=== PATIENT | male | born 1955 | race Native Hawaiian/Other Pacific Islander ===

== ENCOUNTER 2018-08-23 06:03 | Day surgery (SDC) | payer BC ==
[2018-08-17 10:10] VITALS: BMI 26.6
[2018-08-23] MEDS ORDERED: ceFAZolin IV 1 gm in Dextrose 1 GM/50 ML BAG IVPB ONE ×2 (07:19→07:59)
[2018-08-23] MEDS ORDERED: Bupivacaine 0.25% 20 ML INJ IJ ONE (07:19)
[2018-08-23] MEDS ORDERED: Lidocaine/Epinephrine 1% 1:100000 10 ML IJ ONE (07:19)
[2018-08-23] MEDS ORDERED: Propofol 10 mg/ml Inj (20 ML) ONE (08:45)
[2018-08-23] MEDS ORDERED: Midazolam 2 MG/2 ML VIAL ONE (08:45)
[2018-08-23] MEDS ORDERED: Lactated Ringer's 1,000 ML IV SCH (09:45)
--- NOTE | 2018-08-23 09:49 | PCM.SURG1 ---
Surgeon's Initial Post Op Note - Surgeon's Notes Surgeon: Jaciel Mcdonnell MD It Intern: SOFIA White Type of Anesthesia: General Endo Pre-Operative Diagnosis: Left Face lesion 1x2 cm. Left Face Mole 0.5x1 cm Operative Findings: Left Face lesion 1x2 cm. Left Face Mole 0.5x1 cm Post-Operative Diagnosis: Left Face lesion 1x2 cm. Left Face Mole 0.5x1 cm Operation Performed: WLE of Left Face lesion 1x2 cm. WLE of Left Face Mole 0.5x1 cm Specimen/Specimens Removed: Left Face lesion Lower. Left Face Leson Upper Estimated Blood Loss: EBL {In ML}: 10 Blood Products Given: N/A Drains Used: No Drains Post-Op Condition: Good Date of Surgery/Procedure: 08/23/18 Time of Surgery/Procedure: 09:49
[2018-08-23 09:56] VITALS: RESP 18
[2018-08-23 10:01] VITALS: TEMP 98
[2018-08-23 10:20] VITALS: BP 116/69; PULSE 83; O2SAT 98
--- NOTE | 2018-08-24 04:22 | OP ---
PROCEDURE DATE: 08/23/2018 PREOPERATIVE DIAGNOSES: 1. Left face skin lesion. 2. Left upper face mole. POSTOPERATIVE DIAGNOSES: 1. Left face skin lesion. 2. Left upper face mole. PROCEDURES: 1. Wide local excision of left face skin lesion, 2 x 1 cm in size. 2. Wide local excision of mole of left upper face. SURGEON: Jaciel Mcdonnell MD LENDING ADVISOR: KENDY White ANESTHESIA: Local anesthesia plus sedation. ESTIMATED BLOOD LOSS: Around 10 mL. DRAIN: None. PATHOLOGY: 1. The left face skin lesion was sent to the Pathology. 2. The left upper face mole was sent to the Pathology. COMPLICATIONS: None. INTRAOPERATIVE FINDINGS: The patient has approximately 2 x 1 cm irregular-shaped skin lesion of left upper face as well as very small 0.5 x 1 cm mole of left upper side of the face. DESCRIPTION OF PROCEDURE: On intraoperative steps, this is a 62-year-old male who was diagnosed with irregular skin lesion of the left face with a mole nearby. The patient was consented for excision of the left upper face lesion as well as the mole. The patient was brought to the OR, placed supine on the operating table. After induction of the sedation, the left side of the face was prepped and draped in the usual sterile fashion. The local anesthesia was injected. An elliptical 2 x 1 cm incision was made after incising skin and subcutaneous tissue. The skin lesion was completely excised, and it was sent off the table for the pathology. There was another elliptical incision was made surrounding the mole. The mole was approximately 0.5 x 0.5 x 0.5 cm. The mole was excised and it was sent off the table for pathology. The both wounds were closed in two layers, the subcutaneous with a 2-0 Vicryl and skin with a 4-0 Vicryl. A dry sterile dressing was applied. The patient tolerated the procedure well. Count of the instrument and gauze was correct. There was no apparent complication. The patient was reversed from sedation, sent to the postanesthesia care unit in stable condition. Jaciel Mcdonnell MD [facility] # [id number]
== END 2018-08-23 10:29 | disposition home or self-care (01) ==
LOC: C.SDS 06:03
PROVIDERS: ATTEND Surgery Surgical Critical Care
DX: L82.1 Other seborrheic keratosis (principal); L98.9 Disorder of the skin and subcutaneous tissue, unspecified
CPT/HCPCS: 11440; 11442; 12051; 82948; 88305; J0690; J2250; J3010